=== PATIENT | male | born 1985 | race Hispanic/Latino ===

== ENCOUNTER 2018-05-08 21:15 | Emergency (ER) | payer OTHER ==
[2018-05-08 21:24] VITALS: BMI 55.3
--- NOTE | 2018-05-08 21:25 | ED PDOC ---
HPI: Psych/Substance Abuse Time Seen by Provider: 05/08/18 21:23 Chief Complaint (Nursing): Psychiatric Evaluation Chief Complaint (Provider): crisis eval History Per: Patient, EMS Additional Complaint(s): 32 year old male presents for crisis eval. Patient was arguing at home with his and patient stated that he was going to drink bleach and kill himself. Neighbor overheard this, and out of concern contacted police who brought patient to ED for crisis eval. Patient denies any suicidal or homicidal ideation and he states he has no intention of wanting to harm himself. Patient offers no other complaints at this time. PMD: none Past Medical History Reviewed: Historical Data, Nursing Documentation, Vital Signs - Medical History Other PMH: ADHD - Surgical History Other surgeries: Left shoulder surgery - Family History Family History: States: No Known Family Hx - Living Arrangements Living Arrangements: With Family - Social History Current smoker - smoking cessation education provided: No Alcohol: Social Drugs: Denies - Allergies Allergies/Adverse Reactions: Allergies Allergy/AdvReac Type Severity Reaction Status Date / Time No Known Allergies Allergy Verified 05/08/18 21:19 Review of Systems ROS Statement: Except As Marked, All Systems Reviewed And Found Negative Psych: Positive for: Other (Brought in by police for crisis eval). Negative for : Suicidal ideation Physical Exam - Reviewed Nursing Documentation Reviewed: Yes Vital Signs Reviewed: Yes - Physical Exam Appears: Positive for: Well, Non-toxic, No Acute Distress Skin: Positive for: Normal Color. Negative for: Rash Eye Exam: Positive for: Normal appearance Cardiovascular/Chest: Positive for: Regular Rate, Rhythm Respiratory: Positive for: Normal Breath Sounds. Negative for: Respiratory Distress Neurologic/Psych: Positive for: Alert, Oriented - ECG O2 Sat by Pulse Oximetry: 97 Pulse Ox Interpretation: Normal Medical Decision Making Medical Decision Makin32 year old male here for crisis eval plan: Crisis consult 1:1 observation As per crisis counselor and psychiatrist ammonia print operator, Dr. Simpson, patient does not meet criteria for admission and is stable for discharge. Disposition - Clinical Impression Clinical Impression: Adjustment disorder - Patient ED Disposition Is Patient to be Admitted: No Counseled Patient/Family Regarding: Need For Followup - Disposition Referrals: [facility] [Outside] Disposition: Routine/Home Disposition Time: 22:02 Condition: STABLE Additional Instructions: Follow up as directed or return any time if acutely worse or for any concerns. Instructions: Adjustment Disorder Forms: [employer] (Amharic)
[2018-05-08 21:29] VITALS: RESP 18
[2018-05-08 23:17] VITALS: BP 130/78; PULSE 78; TEMP 98; O2SAT 99
== END 2018-05-08 22:15 | disposition home or self-care (01) ==
LOC: H.ER 21:15
DX: F43.20 Adjustment disorder, unspecified (principal); F90.9 Attention-deficit hyperactivity disorder, unspecified type